=== PATIENT | female | born 1945 | race Caucasian/White ===

== ENCOUNTER 2018-12-30 07:09 | Emergency (ER) | payer MEDICARE, BC ==
[2018-12-30 07:35] VITALS: BP 147/75
--- NOTE | 2018-12-30 07:52 | UC ---
Laceration HPI - HPI Summary HPI Summary: Patient presents to urgent care for evaluation of the wound she sustained to her left hand yesterday. Patient states the puppy jumped on her and scratched it with a nail. Patient states she is on Plavix and takes aspirin. Patient unable to get the bleeding to subside on the most lateral aspect of the wound. Patient states she applied a bandage and dressing. Allergic started to bleed again. Patient states she tried to use a Dermabond solution and that did not help. Patient's tetanus is up-to-date. Patient is not immunocompromised. Patient's medications reviewed this visit. - History Of Current Complaint Chief Complaint: UCWounds Stated Complaint: LEFT HAND LACERATION Time Seen by Provider: 12/30/18 07:46 Hx Obtained From: Patient Pain Intensity: 0 - Allergies/Home Medications Allergies/Adverse Reactions: Allergies Allergy/AdvReac Type Severity Reaction Status Date / Time No Known Allergies Allergy Verified 12/30/18 07:34 Home Medications: Home Medications Alendronate Sodium 35 mg PO DAILY 12/30/18 [History Confirmed 12/30/18] Metoprolol Dean/Hydrochlorothiaz [Metoprolol Succinate ER/H 25-12.5 mg] 1 tab PO 12/30/18 [History] PMH/Surg Hx/FS Hx/Imm Hx Previously Healthy: Yes - Surgical History Surgical History: Yes Surgery Procedure, Year, and Place: cataracts - Family History Known Family History: Positive: Non-Contributory - Social History Lives: With Family Alcohol Use: Occasionally Substance Use Type: None Smoking Status (MU): Former Smoker When Did the Patient Quit Smoking/Using Tobacco: 40 years - Immunization History Most Recent Tetanus Shot: Jun 2017 Review of Systems All Other Systems Reviewed And Are Negative: Yes Physical Exam - Summary Physical Exam Summary: Vital Signs Reviewed: Yes A+Ox3, no distress Eyes: Conjunctiva Clear ENT: Hearing grossly normal neck: supple Respiratory: Positive: No respiratory distress, No accessory muscle use Cardiovascular: skin color reflect adequate perfusion Musculoskeletal Exam: ROSADO x 4 without difficulty 5/5 grasp, ROM hand Neurological: Positive: Alert, ambulatory without difficulty Psychological: Positive: Normal Response To proivder Skin: Positive: no rash, no ecchymosis Left Dorsum; pt with 2.5cm laceration - most medial border with slow, non-arterial ooze. wound well approximated Triage Information Reviewed: Yes Vital Signs: Initial Vital Signs Temp 98.1 F 12/30/18 07:29 Pulse 69 12/30/18 07:29 Resp 18 12/30/18 07:29 BP 147/75 12/30/18 07:29 Pulse Ox 100 12/30/18 07:29 Laceration Course/Dx - Course/Dx Course Of Treatment: Pt presents for a persistent, oozing wound to dorsum left hand after being scratched by a dog yesterday afternoon. Tdap utd. RHD d/w pt - non suturable > 12 hours wound cleansed by RN Will apply steristrip for approximation, spongegauze, sterile gauze and coban place splint by RN After 15 min - no active bleeding noted Reviewed with pt wound care leave bandaged x 24 hours elevate rest return precautions monitor s/s infection reviewed pt in agreement with plan BP mildly elevated -recommend f/u with pcp, h/o same - Diagnosis Provider Diagnosis: Wound of left upper extremity Discharge - Sign-Out/Discharge Documenting (check all that apply): Patient Departure All imaging exams completed and their final reports reviewed: No Studies - Discharge Plan Condition: Stable Disposition: HOME Patient Education Materials: Acute Wound Care (ED) Referrals: Josias Alejandro MD [Primary Care Provider] - Additional Instructions: - keep wound bandaged and dry today. Starting tomorrow, okay to remove wrap and use gentle water to remove gelfoam. Leave steri-strips in place. It is recommended you cover these strips with bandage. - wear wrist splint to help with immobilization today. - Okay to take Tylenol if needed for pain - monitor your wound for signs of infection - reddness, red streaking, odor, increased pain - return here or schedule a follow-up with your primary doctor if there are any concerns - avoid getting your wound wet today - Billing Disposition and Condition Condition: STABLE Disposition: Home
[2018-12-30] MEDS ORDERED: Gelfoam 12-7 ADSORBABL SPONGE* 1 EA SPONGE TOPICAL ONE (08:01)
== END 2018-12-30 08:44 | disposition home or self-care (01) ==
LOC: UCCORT 07:09
DX: S61.402A Unspecified open wound of left hand, initial encounter (principal); W54.8XXA Other contact with dog, initial encounter; Y93.89 Activity, other specified; Y92.9 Unspecified place or not applicable; Z79.02 Long term (current) use of antithrombotics/antiplatelets; Z87.891 Personal history of nicotine dependence
CPT/HCPCS: 99201; A9270-GY; G0463